=== PATIENT | male | born 1965 | race Caucasian/White ===

== ENCOUNTER 2018-07-03 01:38 | Inpatient (IN) | payer BC ==
[~2018-07-03] VITALS: Ht 188 cm; Wt 127.9 kg
--- NOTE | 2018-07-03 01:40 | ED.ADGEN ---
Past History Past Medical History: GERD Past Surgical History: Other Adult General Chief Complaint Chief Complaint ".. We were down in [place] for 7 days.. and have just flown back... I did have some diarrhea down there... but I got over it... since I ve been back... I ve had some left calf tenderness.... and swelling... and some chest pain... I do have reflux sometimes...but not this kind of chest pain... ".. " Been having the pain for about 2 hours..." HPI HPI Patient is a 52 year old male [place] [employer]. who presents with above hx and complaints of chest pain. Lt leg pain and edema. Chest pain and leg pain is rated 5/10. Nothing seems to make pain less. No hx of prior cardiac, coagulopathic,and hypertension conditions. Patient does chew tobacco. Recent travel to [facility]. Pt. denies any recent trauma, bad food or cough. Does have hx GERD, but not been on reflux or anti acid meds or had a repeat EGD for 10 yrs. No hx of immunosuppression. No specific ill contacts. Pt. normally does not follow with a physician. Review of Systems Review of Systems Constitutional: Denies fever or chills [] Eyes: Denies change in visual acuity, redness, or eye pain [] HENT: Denies nasal congestion or sore throat [] Respiratory: Denies cough or shortness of breath [] Cardiovascular: No additional information not addressed in HPI [] GI: Denies abdominal pain, nausea, vomiting, bloody stools or diarrhea [] : Denies dysuria or hematuria [] Musculoskeletal: Denies back pain or joint pain []Lt. calf pain and edema Integument: Denies rash or skin lesions [] Neurologic: Denies headache, focal weakness or sensory changes [] Endocrine: Denies polyuria or polydipsia [] All other systems were reviewed and found to be within normal limits, except as documented in this note. Family History Family History Noncontributory Current Medications Current Medications Current Medications Medications (Trade) Dose Ordered Sig/Kelsie Start Time Stop Time Status Last Admin Dose Admin Aspirin (Children'S Aspirin) 324 mg 1X ONCE 07/03/18 02:30 07/03/18 02:31 DC 07/03/18 02:30 324 MG Enoxaparin Sodium (Lovenox 150mg Syringe) 130 mg 1X ONCE 07/03/18 02:30 07/03/18 02:31 DC 07/03/18 02:31 130 MG Famotidine (Pepcid Vial) 20 mg 1X ONCE 07/03/18 02:30 07/03/18 02:31 DC 07/03/18 02:31 20 MG Info (Do NOT chart on this entry -- for MONITORING) 1 each PRN DAILY PRN 07/03/18 03:00 07/05/18 02:59 Iohexol (Omnipaque 300 Mg/ml) 75 ml 1X ONCE 07/03/18 03:30 07/03/18 03:31 DC 07/03/18 03:04 75 ML Lactated Ringer's 1,000 ml @ 1,000 mls/hr Q1H 07/03/18 02:30 07/03/18 03:29 DC 07/03/18 02:30 1,000 MLS/HR Morphine Sulfate (Morphine 4mg Syringe) 4 mg 1X ONCE 07/03/18 04:00 07/03/18 04:01 DC 07/03/18 03:52 4 MG Nitroglycerin (Nitro-Bid Oint) 1 inch 1X ONCE 07/03/18 02:30 07/03/18 02:31 DC 07/03/18 02:30 1 INCH Ondansetron HCl (Zofran) 4 mg PRN Q4HRS PRN 07/03/18 03:15 07/04/18 03:14 Potassium Chloride (KCl Oral Soln) 40 meq 1X ONCE 07/03/18 03:30 07/03/18 03:31 DC 07/03/18 03:13 40 MEQ See nursing for home meds Allergies Allergies Allergies Coded Allergies Type Severity Reaction Last Updated Verified No Known Drug Allergies 07/03/18 No No known drug allergies Physical Exam Physical Exam Constitutional: Well developed, well nourished, moderately acute distress, non- toxic appearance. [] HENT: Normocephalic, atraumatic, bilateral external ears normal, oropharynx moist, no oral exudates, nose normal. [] Eyes: PERRLA, EOMI, conjunctiva normal, no discharge. Glasses. Neck: Normal range of motion, no tenderness, supple, no stridor. [] Cardiovascular:Heart rate regular rhythm, no murmur [] Lungs & Thorax: Bilateral breath sounds equal at apex on auscultation [] Abdomen: Bowel sounds normal, soft, no tenderness, no masses, no pulsatile masses. [] Rectal exam no gross blood Skin: Warm, dry, no erythema, anterior rash/ sunburn?. Back: No tenderness, no CVA tenderness. [] Extremities: Lt. calf tenderness, no cyanosis, no clubbing, ROM intact, Lt. calf edema. [] Neurologic: Alert and oriented X 3, normal motor function, normal sensory function, no focal deficits noted. [] Psychologic: Affect anxious, judgement normal, mood normal. [] Current Patient Data Vital Signs Vital Signs Date Time Temp Pulse Resp B/P (MAP) Pulse Ox O2 Delivery O2 Flow Rate FiO2 07/03/18 02:30 73 162/104 Lab Results Laboratory Tests Test 07/03/18 01:55 White Blood Count 6.1 x10^3/uL (4.0-11.0) Red Blood Count 4.96 x10^6/uL (4.30-5.70) Hemoglobin 14.7 g/dL (13.0-17.5) Hematocrit 41.9 % (39.0-53.0) Mean Corpuscular Volume 85 fL (79-100) Mean Corpuscular Hemoglobin 30 pg (25-35) Mean Corpuscular Hemoglobin Concent 35 g/dL (31-37) Red Cell Distribution Width 13.4 % (11.5-14.5) Platelet Count 271 x10^3/uL (140-400) Neutrophils (%) (Auto) 57 % (31-73) Lymphocytes (%) (Auto) 29 % (24-48) Monocytes (%) (Auto) 9 % (0-9) Eosinophils (%) (Auto) 4 % (0-3) H Basophils (%) (Auto) 1 % (0-3) Neutrophils # (Auto) 3.5 x10^3uL (1.8-7.7) Lymphocytes # (Auto) 1.8 x10^3/uL (1.0-4.8) Monocytes # (Auto) 0.6 x10^3/uL (0.0-1.1) Eosinophils # (Auto) 0.2 x10^3/uL (0.0-0.7) Basophils # (Auto) 0.0 x10^3/uL (0.0-0.2) Prothrombin Time 10.4 SEC (9.4-11.4) Prothrombin Time INR 1.0 (0.9-1.1) PTT 28 SEC (23-33) D-Dimer (Katrina) 0.30 mg/L (0.00-0.50) Sodium Level 144 mmol/L (136-145) Potassium Level 3.1 mmol/L (3.5-5.1) L Chloride Level 106 mmol/L (98-107) Carbon Dioxide Level 27 mmol/L (21-32) Anion Gap 11 (6-14) Blood Urea Nitrogen 17 mg/dL (8-26) Creatinine 1.2 mg/dL (0.7-1.3) Estimated GFR (Cockcroft-Gault) 63.3 Glucose Level 108 mg/dL (70-99) H Calcium Level 9.0 mg/dL (8.5-10.1) Magnesium Level 1.8 mg/dL (1.8-2.4) Total Bilirubin 0.3 mg/dL (0.2-1.0) Direct Bilirubin 0.1 mg/dL (0.0-0.2) Aspartate Amino Transferase (AST) 16 U/L (15-37) Alanine Aminotransferase (ALT) 28 U/L (16-63) Alkaline Phosphatase 74 U/L (46-116) Creatine Kinase 107 U/L (39-308) Creatine Kinase MB (Mass) 1.3 ng/mL (0.0-3.6) Creatine Kinase MB Relative Index 1.2 % (0-4) Troponin I Quantitative < 0.017 ng/mL (0-0.055) TV-Wld-Y-Type Natriuretic Peptide 42 pg/mL (0-124) Total Protein 6.8 g/dL (6.4-8.2) Albumin 3.5 g/dL (3.4-5.0) Lipase 188 U/L (73-393) EKG EKG My interpretation EKG shows a sinus rhythm at 79 bpm with no acute morphology[] Radiology/Procedures Radiology/Procedures My interpretation of chest x-ray shows no acute cardio pulmonary findings. [] Course & Med Decision Making Course & Med Decision Making Pertinent Labs and Imaging studies reviewed. (See chart for details) Discussed presentation, testing and tx. plan with Dr. Lopez. Will admit, serial enzymes. Cardiology consult. Pain at time admit = 0/10. [] Final Impression Final Impression 1. Chest Pain[] 2. Hypertension- on presentation 3. History of GERD 4. Tobacco use- chews 5. Hypokalemia 3.1 6. Lt Calf edema and pain Dragon Disclaimer Dragon Disclaimer This electronic medical record was generated, in whole or in part, using a voice recognition dictation system. LUIS THOMAS MD Jul 03, 2018 01:40
[2018-07-03] MEDS ORDERED: ASPIRIN 81 MG TAB.CHEW PO ONE (02:30)
[2018-07-03] MEDS ORDERED: ENOXAPARIN ** NOTE DOSE ** SYRINGE SQ ONE (02:30)
[2018-07-03] MEDS ORDERED: IV RINGERS SOLUTION,LACTATED 1,000 ML IV SCH (02:30)
[2018-07-03] MEDS ORDERED: FAMOTIDINE 20 MG/2 ML VIAL IVP ONE (02:30)
[2018-07-03] MEDS ORDERED: NITROGLYCERIN OINT 1 GM PACKET. TP ONE (02:30)
[2018-07-03 02:45] LABS: ALBUMIN 3.5 g/dL (3.4-5.0); CREATININE 1.2 mg/dL (0.7-1.3); DIRECT BILIRUBIN 0.1 mg/dL (0.0-0.2); GFR 63.3; MAGNESIUM 1.8 mg/dL (1.8-2.4); POTASSIUM 3.1 mmol/L (3.5-5.1); TOTAL BILIRUBIN 0.3 mg/dL (0.2-1.0); TOTAL PROTEIN 6.8 g/dL (6.4-8.2)
[2018-07-03 02:59] LABS: BASO % 1 % (0-3); EOS # 0.2 x10^3/uL (0.0-0.7); EOS % 4 % (0-3); HEMATOCRIT 41.9 % (39.0-53.0); HEMOGLOBIN 14.7 g/dL (13.0-17.5); LYMPH # 1.8 x10^3/uL (1.0-4.8); LYMPH % 29 % (24-48); MEAN CORPUSCULAR HEMOGLOBIN 30 pg (25-35); MEAN CORPUSCULAR HGB CONC 35 g/dL (31-37); MEAN CORPUSCULAR VOLUME 85 fL (79-100); MONO # 0.6 x10^3/uL (0.0-1.1); MONO % 9 % (0-9); NEUT # 3.5 x10^3uL (1.8-7.7); NEUT % 57 % (31-73); PLATELET COUNT 271 x10^3/uL (140-400); RED BLOOD COUNT 4.96 x10^6/uL (4.30-5.70); RED CELL DISTRIBUTION WIDTH 13.4 % (11.5-14.5); WHITE BLOOD COUNT 6.1 x10^3/uL (4.0-11.0)
[2018-07-03] MEDS ORDERED: CONTRAST GIVEN MC PRN (03:00)
[2018-07-03] MEDS ORDERED: ONDANSETRON PF 4 MG/2 ML VIAL. IV PRN (03:15)
[2018-07-03] MEDS ORDERED: IOHEXOL 300 MG/ML 75 ML VIAL. IV ONE (03:30)
[2018-07-03] MEDS ORDERED: POTASSIUM CHLORIDE 20 MEQ/15 ML ORAL LIQUID. PO ONE (03:30)
[2018-07-03] MEDS ORDERED: MORPHINE SULFATE 4 MG/ML DISP.SYRIN. IV ONE ×2 (03:30→04:00)
--- NOTE | 2018-07-03 04:39 | RAD ---
Examination: CT ANGIOGRAPHY CHEST History: CHEST PAIN, SHORTNESS OF AIR, RECENT TRAVEL. 75MLS OMNI 300 IV CONTRAST Comparison/Correlation: None Findings: Axial images of the chest were obtained following 75 cc Omnipaque 300 IV. Sagittal and coronal reformatted images were provided. Exam is according to pulmonary arteriography protocol. Opacification of the main pulmonary artery is identified to be of 176 Hounsfield units. This is a suboptimal. No central pulmonary arterial thromboembolic disease is identified. Evaluation more distally is limited however. Suboptimal opacification of pulmonary arterial vasculature appears to represent transient contraction of contrast. Thickened left ventricular wall appears to be present. Thoracic aorta is not opacified for arteriographic evaluation purposes. Contour of the thoracic aorta is grossly unremarkable. There is no focal consolidation. No pleural or pericardial effusion. No enlarged thoracic lymph nodes. Partially visualized upper abdomen is unremarkable. Impression: No central pulmonary arterial thromboembolic disease suggested but this exam is very limited overall for assessment of pulmonary arterial thromboembolic disease due to suboptimal opacification of the pulmonary arterial vasculature. This appears to be due to transient interruption of contrast. Left ventricular hypertrophy suspected. No focal infiltrate. Electronically signed by: Siddhartha Qureshi MD (07/03/2018 4:35 AM) [facility]
[2018-07-03 05:51] VITALS: BP 130/79
--- NOTE | 2018-07-03 06:03 | EKG ---
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
--- NOTE | 2018-07-03 07:48 | RAD ---
PA and lateral chest x-ray HISTORY: Chest pain shortness of breath. FINDINGS: Heart size normal. Mediastinal silhouette is normal. No pneumothorax, pulmonary opacities or pleural effusions. Mild thoracic spine scoliosis. IMPRESSION: No acute process. Electronically signed by: Wai Franklin MD (07/03/2018 7:45 AM) [facility]
[2018-07-03 11:11] VITALS: BP 119/72
--- NOTE | 2018-07-03 11:28 | RAD ---
Left lower extremity venous duplex Doppler ultrasound TECHNIQUE: Grayscale and duplex Doppler sonography were utilized. HISTORY: Left leg pain and redness. FINDINGS: No DVT evident by grayscale sonography with compressibility, patent color Doppler blood flow and respiratory variability of the left common femoral vein, profunda femoral vein, superficial femoral vein and popliteal vein. No DVT evident with patent color Doppler blood flow of the left posterior tibial and peroneal veins in the calf. IMPRESSION: Negative left leg for DVT. Electronically signed by: Wai Franklin MD (07/03/2018 11:25 AM) [facility]
--- NOTE | 2018-07-03 13:53 | PDOC2 ---
CONSULT Date of Admission DATE: 07/03/18 TIME: 13:47 Reason for Consult: Chest pain Referring Physician: Dr. Lopez Chief Complaint Chest pain Source: Chart review, Patient Problem List Problems Medical Problems: (1) Chest pain Status: Acute History of Present Illness 52-year-old male without any previous cardiac history apparently flew back from [facility] where he was vacationing for the past 7 days and was staying at his in- laws place in [place] when he started noticing left calf tenderness and intermittent episodes of left-sided chest pain 4/10 severity not related to exertion or food intake. He denied any orthopnea/PND, palpitations or syncope. Past Medical History Gastroesophageal reflux disease Family History Negative for premature coronary disease Social History Patient admitted to chewing tobacco and social intake of alcohol. He denied any drug abuse. Current Medications Current Medications Aspirin (Children'S Aspirin) 324 mg 1X ONCE PO Last administered on 07/03/18at 02:30; Start 07/03/18 at 02:30; Stop 07/03/18 at 02:31; Status DC Enoxaparin Sodium (Lovenox 150mg Syringe) 130 mg 1X ONCE SQ Last administered on 07/03/18at 02:31; Start 07/03/18 at 02:30; Stop 07/03/18 at 02:31; Status DC Lactated Ringer's 1,000 ml @ 1,000 mls/hr Q1H IV Last administered on at 02:30; Start 07/03/18 at 02:30; Stop 07/03/18 at 03:29; Status DC Famotidine (Pepcid Vial) 20 mg 1X ONCE IVP Last administered on 07/03/18at 02: 31; Start 07/03/18 at 02:30; Stop 07/03/18 at 02:31; Status DC Nitroglycerin (Nitro-Bid Oint) 1 inch 1X ONCE TP Last administered on at 02:30; Start 07/03/18 at 02:30; Stop 07/03/18 at 02:31; Status DC Potassium Chloride (KCl Oral Soln) 40 meq 1X ONCE PO Last administered on 07/03at 03:13; Start 07/03/18 at 03:30; Stop 07/03/18 at 03:31; Status DC Iohexol (Omnipaque 300 Mg/ml) 75 ml 1X ONCE IV Last administered on 07/03/18at 03:04; Start 07/03/18 at 03:30; Stop 07/03/18 at 03:31; Status DC Info (Do NOT chart on this entry -- for MONITORING) 1 each PRN DAILY PRN MC SEE COMMENTS; Start 07/03/18 at 03:00; Stop 07/05/18 at 02:59 Morphine Sulfate (Morphine 4mg Syringe) 4 mg 1X ONCE IV Last administered on 07/03/18at 03:14; Start 07/03/18 at 03:30; Stop 07/03/18 at 03:31; Status DC Ondansetron HCl (Zofran) 4 mg PRN Q4HRS PRN IV NAUSEA/VOMITING; Start 07/03/18 at 03:15; Stop 07/04/18 at 03:14 Morphine Sulfate (Morphine 4mg Syringe) 4 mg 1X ONCE IV Last administered on 07/03/18at 03:52; Start 07/03/18 at 04:00; Stop 07/03/18 at 04:01; Status DC Influenza Virus Vaccine (Afluria Trivalent 3926-0741 Syringe) 0.5 ml ONCE ONCE VAX IM Last administered on 07/03/18at 12:50; Start 07/03/18 at 09:00; Stop 07/03/18 at 09:01; Status DC Active Scripts Active Reported No Known Medications Prior To Admisstion (Info) Each 1 Each MC DAILY PRN Allergies: Coded Allergies: No Known Drug Allergies (Unverified , 07/03/18) PSYCHOLOGICAL ROS: No: Hallucinations Eyes: No: Loss of vision HEENT: No: Epistaxis Respiratory: No: Hemoptysis Cardiovascular: yes: Chest Pain Gastrointestinal: No: Vomiting, Diarrhea Musculoskeletal: YES: Pain In: (left leg) Neurological: No: Seizures General: Alert, Oriented X3 HEENT: Atraumatic, PERRLA Lungs: Clear to auscultation Heart: Regular rate Abdomen: Soft, No tenderness Extremities: No edema Psych/Mental Status: Mood NL VITALS Vital Signs Date Time Temp Pulse Resp B/P (MAP) Pulse Ox O2 Delivery O2 Flow Rate FiO2 07/03/18 11:11 97.9 63 20 119/72 (88) 93 07/03/18 05:51 Room Air Labs Laboratory Tests Test 07/03/18 01:55 12/9/18 06:15 White Blood Count 6.1 x10^3/uL (4.0-11.0) Red Blood Count 4.96 x10^6/uL (4.30-5.70) Hemoglobin 14.7 g/dL (13.0-17.5) Hematocrit 41.9 % (39.0-53.0) Mean Corpuscular Volume 85 fL (79-100) Mean Corpuscular Hemoglobin 30 pg (25-35) Mean Corpuscular Hemoglobin Concent 35 g/dL (31-37) Red Cell Distribution Width 13.4 % (11.5-14.5) Platelet Count 271 x10^3/uL (140-400) Neutrophils (%) (Auto) 57 % (31-73) Lymphocytes (%) (Auto) 29 % (24-48) Monocytes (%) (Auto) 9 % (0-9) Eosinophils (%) (Auto) 4 % (0-3) Basophils (%) (Auto) 1 % (0-3) Neutrophils # (Auto) 3.5 x10^3uL (1.8-7.7) Lymphocytes # (Auto) 1.8 x10^3/uL (1.0-4.8) Monocytes # (Auto) 0.6 x10^3/uL (0.0-1.1) Eosinophils # (Auto) 0.2 x10^3/uL (0.0-0.7) Basophils # (Auto) 0.0 x10^3/uL (0.0-0.2) Prothrombin Time 10.4 SEC (9.4-11.4) Prothromb Time International Ratio 1.0 (0.9-1.1) Activated Partial Thromboplast Time 28 SEC (23-33) D-Dimer (Katrina) 0.30 mg/L (0.00-0.50) Sodium Level 144 mmol/L (136-145) Potassium Level 3.1 mmol/L (3.5-5.1) Chloride Level 106 mmol/L (98-107) Carbon Dioxide Level 27 mmol/L (21-32) Anion Gap 11 (6-14) Blood Urea Nitrogen 17 mg/dL (8-26) Creatinine 1.2 mg/dL (0.7-1.3) Estimated GFR (Cockcroft-Gault) 63.3 Glucose Level 108 mg/dL (70-99) Calcium Level 9.0 mg/dL (8.5-10.1) Magnesium Level 1.8 mg/dL (1.8-2.4) Total Bilirubin 0.3 mg/dL (0.2-1.0) Direct Bilirubin 0.1 mg/dL (0.0-0.2) Aspartate Amino Transf (AST/SGOT) 16 U/L (15-37) Alanine Aminotransferase (ALT/SGPT) 28 U/L (16-63) Alkaline Phosphatase 74 U/L (46-116) Creatine Kinase 107 U/L (39-308) Creatine Kinase MB (Mass) 1.3 ng/mL (0.0-3.6) Creatine Kinase MB Relative Index 1.2 % (0-4) Troponin I Quantitative < 0.017 ng/mL (0-0.055) < 0.017 ng/mL (0-0.055) [id number]-Type Natriuretic Peptide 42 pg/mL (0-124) Total Protein 6.8 g/dL (6.4-8.2) Albumin 3.5 g/dL (3.4-5.0) Lipase 188 U/L (73-393) Thyroid Stimulating Hormone (TSH) 5.488 uIU/mL (0.358-3.740) Triglycerides Level 112 mg/dL (0-150) Cholesterol Level 153 mg/dL (0-200) LDL Cholesterol, Calculated 98 mg/dL (0-100) VLDL Cholesterol, Calculated 22 mg/dL (0-40) Non-HDL Cholesterol Calculated 120 mg/dL (0-129) HDL Cholesterol 33 mg/dL (40-60) Cholesterol/HDL Ratio 4.0 Assessment/Plan 1. Chest pain with atypical features: CT scan of the chest did not show any acute PE. Myocardial infarction has been ruled out. Plan for 2-D echo and Lexiscan nuclear stress test as an outpatient. 2. Left calf pain: Lower extremity venous duplex negative for DVT. 3. Elevated blood pressure upon admission, presently resolved without any medications. 4. Hypokalemia: Replac orally Thank you for your consultation TEREZA ROSARIO MD Jul 03, 2018 13:53
[2018-07-03 14:27] LABS: CALCIUM 8.4 mg/dL (8.5-10.1); CREATININE 1.1 mg/dL (0.7-1.3); POTASSIUM 3.6 mmol/L (3.5-5.1)
[2018-07-03] MEDS ORDERED: PANT40TA3 PO (14:48)
--- NOTE | 2018-07-03 16:27 | SSS ---
ADMIT DATE: 07/03/2018 HISTORY OF PRESENT ILLNESS: The patient is a 52-year-old male patient, who came to the Emergency Room complaining of chest pain. He also complained of left calf tenderness and swelling; however, he denied any cough, phlegm, or hemoptysis. He apparently has had some diarrhea together with nausea and vomiting for the last few days, but he said he got over it. He was watching TV when he started having this chest pain that was retrosternal, associated with sweating, shortness of breath. He rated about 5/10 in severity for which he was given 4 baby aspirin, sublingual nitroglycerin, and morphine and the pain has subsided. He was extensively investigated in the Emergency Room. He has had ultrasound of the left lower extremity, which showed no evidence of deep vein thrombosis. He had a CT angio of the chest, which also showed that he has no central pulmonary arterial thromboembolic disease suggested and he has also left ventricular hypertrophy suspected, but no focal infiltrate. He has also 3 sets of cardiac enzymes that were negative. He was seen in consultation by the internet designer, who recommended an outpatient echocardiogram and stress test. PAST MEDICAL HISTORY: Significant for gastroesophageal reflux disease. PAST SURGICAL HISTORY: Significant for bilateral knee arthroscopic surgery, right shoulder surgery, esophagogastroduodenoscopy, colonoscopy, left cataract extraction, tonsillectomy, colonoscopy and polypectomy as well as lipoma removal. ALLERGIES: He has no known drug allergies. MEDICATIONS: He is currently on following medications: He is on Protonix 40 mg once a day. FAMILY HISTORY: He has 3 brothers and 3 sisters, all younger and healthy. His father at age of 73 with COPD and lung cancer. Mother at age of 45 because of a car accident. SOCIAL HISTORY: He is , has a son and daughter. He chew tobacco, drinks alcohol occasionally. 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 REVIEW OF SYSTEMS: The patient denied any blurring of vision, cataract, glaucoma or macular degeneration. Denied any earache, tinnitus or sensorineural deafness. Denied any nosebleeds, stuffy nose or postnasal drip. Denied any sore throat, sore tongue, toothache, hoarseness of voice or difficulty swallowing. Did complain of nausea, vomiting and diarrhea few days ago. He denied any hematemesis, melena, or hematochezia. Denied any dysuria, frequency or hematuria. Did complain of chest pain, shortness of breath, but denied any cough, phlegm, or hemoptysis. PHYSICAL EXAMINATION: GENERAL: On examining him, he looked well and was clearly in no apparent respiratory distress. No pallor, jaundice, cyanosis, or thyromegaly. No jugular venous distension. No lower limb edema. VITAL SIGNS: His heart rate on arrival was 77, blood pressure 162/104, temperature was 97.9, respiratory rate 20, and oxygen saturation 97%. HEAD, EYES, EARS, NOSE AND THROAT: Showed normocephalic, atraumatic. NECK: Supple. HEART: Showed normal first and second heart sounds with no gallop, rub or murmur. CHEST: Clear to auscultation. No crepitation or rhonchi. ABDOMEN: Distended, soft, nontender. NEUROLOGIC: He was awake, alert, responding appropriately. All cranial nerves intact. EXTREMITIES: He moves extremities without difficulty. He ambulates without assistance or assistive devices. SKIN: Showed that he has a maculopapular skin rash mostly on the medial aspect of both left and right legs, more so on the left. It is also in his abdomen and chest. The left leg seems slightly more swollen. LABORATORY DATA: Showed serum sodium of 144, potassium 3.1, chloride 106, bicarbonate 27, anion gap of 11, BUN 17, creatinine 1.2, estimated GFR was 63 mL per minute. His glucose was 108, calcium was 9, magnesium was 1.8. Total bilirubin, AST, ALT, alkaline phosphatase were normal. His total protein was 6.8, albumin was 3.5, lipase 188. He has 3 sets of cardiac enzymes that were negative. The patient's potassium was replenished and he was discharged home to continue on Protonix 40 mg once a day. He was seen in consultation by the Cardiology team, who recommended outpatient 2-dimensional echocardiogram and Lexiscan nuclear stress test as an outpatient. FINAL DISCHARGE DIAGNOSES: Chest pain, which is atypical, gastroesophageal reflux disease. The patient has elevated blood pressure upon admission; however, that resolved without any medication. Hypokalemia, resolved. MARY ROSS MD DR: INNA/deloris JOB#: [id number] / [id number]
[2018-07-04] MEDS ORDERED: PANTOPRAZOLE 40 MG TABLET. PO SCH (07:30)
== END 2018-07-03 15:09 | disposition home or self-care (01) | DRG 392 ==
LOC: ER 01:38 → 1 SOUTH 05:06
PROVIDERS: ADMIT Internal Medicine; ATTEND Internal Medicine
DX: K21.9 Gastro-esophageal reflux disease without esophagitis (principal); E87.6 Hypokalemia; F17.220 Nicotine dependence, chewing tobacco, uncomplicated; I10 Essential (primary) hypertension; Z80.1 Family history of malignant neoplasm of trachea, bronchus and lung; Z82.5 Family history of asthma and other chronic lower respiratory diseases; Z98.42 Cataract extraction status, left eye; Z90.89 Acquired absence of other organs; R07.89 Other chest pain
CPT/HCPCS: 36415; 71046; 71275; 80048; 80061; 80076; 82553; 83690; 83735; 83880; 84443; 84484; 85025; 85379; 85610; 85730; 90471; 90756; 93005; 93971; J1650; J2270; J3490; J7120; Q9967; Q2035